=== PATIENT | female | born 1970 | race Two or more races ===

== ENCOUNTER 2021-01-14 08:15 | Inpatient (IN) | payer OTHER ==
[~2021-01-14] VITALS: Ht 165.1 cm; Wt 85.7 kg
[~2021-01-14 08:15] MED LIST: ASA81 MG; CALTRATE 600+D1 EAC1 PO; GLYCOTROL CAPS1 EACH PO; KLONOPIN2 MG/TAB; NABUMETONE500 MG PO; OSTERA TABLET1 EACH PO; PERCOCET 5-3251 EACH PO; TOPROL XL100 M1 PO; [UNRECOGNIZED DRUG - OTHER]
[2021-01-14] MEDS ORDERED: TOPAMAX50 MG PO (09:46)
[2021-01-14] MEDS ORDERED: TOPAM PO (09:47)
[2021-01-14] MEDS ORDERED: TIROSINT25 MCG PO (09:47)
[2021-01-14] MEDS ORDERED: FAMOTIDINE40 MG PO (09:48)
[2021-01-14] MEDS ORDERED: BENICAR5 MG PO (09:48)
[2021-01-14] MEDS ORDERED: ZOLOFT50 MG PO (09:48)
[2021-01-14] MEDS ORDERED: PANTOPRAZOLE SO40 MG PO (09:49)
[2021-01-14] MEDS ORDERED: CALCIUM PO (09:49)
[2021-01-21] MEDS ORDERED: ALENDRONATE SOD70 MG (07:52)
[2021-01-21] MEDS ORDERED: OMEPRAZOLE20 MG (07:52)
[2021-01-21] MEDS ORDERED: CALCIUM500 M1 (07:53)
[2021-01-21] MEDS ORDERED: VITAMIN B125000 MCG PO (08:28)
[2021-01-21] MEDS ORDERED: VITAMIN D3125 MC1 (08:29)
== END 2021-01-23 19:25 | DRG 470 ==
LOC: SURH 01-21 06:00 → O/R 01-21 06:00 → SURH 01-21 07:00
PROVIDERS: ADMIT Orthopaedic Surgery; ATTEND Orthopaedic Surgery
PROC: 0SRD0J9 Replacement of Left Knee Joint with Synthetic Substitute, Cemented, Open Approach (ICD-10-PCS; principal; 2021-01-21 07:00)
DX: M17.12 Unilateral primary osteoarthritis, left knee (principal); D62 Acute posthemorrhagic anemia; G40.802 Other epilepsy, not intractable, without status epilepticus; I10 Essential (primary) hypertension; K59.00 Constipation, unspecified

== ENCOUNTER 2024-10-23 07:00 | Inpatient (IN) | payer OTHER ==
[~2024-10-23] VITALS: Ht 165.1 cm; Wt 92.5 kg
[~2024-10-23 07:00] MED LIST changes: +ALENDRONATE SOD70 MG; +BENICAR5 MG PO; +CALCIUM PO; +CALCIUM500 M1; +FAMOTIDINE40 MG PO; +OMEPRAZOLE20 MG; +PANTOPRAZOLE SO40 MG PO; +TIROSINT25 MCG PO; +TOPAM PO; +TOPAMAX50 MG PO; +VITAMIN B125000 MCG PO; +VITAMIN D3125 MC1; +ZOLOFT50 MG PO
[2024-10-23 08:04] LABS: URINE APPEARANCE Clear; URINE BILIRRUBIN Negative (NEGATIVE); URINE BLOOD Negative; URINE COLOR Yellow; URINE GLUCOSE Negative (NEGATIVE); URINE KETONE Negative (NEGATIVE); URINE LEUKOCYTE Small; URINE NITRATE Negative; URINE PROTEIN Negative (NEGATIVE); URINE UROBILINOGEN 0.2 E.U./dl
[2024-10-23 08:05] LABS: URINE EPITHELIAL CELLS 3.6 uL (0.0-38.8); URINE RBC 13.3 uL (0.0-20.8); URINE WBC 54.7 uL (0.0-23.2)
[2024-10-23 08:24] LABS: INR 0.96; PARTIAL THROMBOPLASTIN TIME 25.1 SECONDS (22.0-34.0); PROTHROMBIN TIME 10.5 SECONDS (9.0-11.5)
[2024-10-23 08:33] VITALS: BP 137/77
[2024-10-31] MEDS ORDERED: OxyCODONE HCL/APAP UD (PERCOCET) PO PRN (10:45)
[2024-10-31] MEDS ORDERED: ONDANSETRON HCL 2 MG/ML VIAL IV PRN (10:45)
[2024-10-31] MEDS ORDERED: LIDOCAINE HCL 1%/EPINEPHRINE 20ML VIAL IJ ONE (11:17)
[2024-10-31] MEDS ORDERED: BUPIVACAINE HCL/MPF 0.5% 30ML VIAL ONE (11:17)
[2024-10-31] MEDS ORDERED: TRANEXAMIC ACID 100MG/1ML (1000MG) AMPUL IV ONE (11:18)
[2024-10-31] MEDS ORDERED: KETOROLAC TROMETHAMINE 60 MG VIAL IM ONE (11:45)
[2024-10-31] MEDS ORDERED: CEFAZOLIN SODIUM 1,000 MG VIAL IV SCH (12:00)
[2024-10-31] MEDS ORDERED: MORPHINE SULFATE 4 MG/ML CARTRIDGE IV SCH (12:00)
[2024-10-31] MEDS ORDERED: CEFAZOLIN SODIUM 1,000 MG VIAL ONE (13:22)
[2024-10-31 15:00] VITALS: BP 160/83; O2SAT 97
[2024-10-31] MEDS ORDERED: GABAPENTIN 100 MG CAPSULE PO SCH (21:00)
[2024-10-31] MEDS ORDERED: ORPHENADRINE CITRATE 100 MG TABLET PO SCH (21:00)
[2024-11-01 01:21] VITALS: BP 108/61; O2SAT 98
[2024-11-01] MEDS ORDERED: LEVOTHYROXINE SODIUM 25 MCG TABLET PO SCH (06:00)
[2024-11-01 07:06] LABS: HEMATOCRIT 33.6 % (36.0-45.00); HEMOGLOBIN 11.2 g/dL (12.0-15.00); MEAN CELL VOLUME 92.7 fL (80.00-100.00); MEAN CORPUSCULAR HEMOGLOBIN 30.8 pg (27.00-32.0); MEAN CORPUSCULAR HGB CONC 33.3 g/dl (32.0-36.0); PLATELET COUNT 135 K/uL (150-450); RED BLOOD COUNT 3.62 M/uL (4.00-6.00); RED CELL DISTRIBUTION WIDTH 14.5 % (11.5-14.5)
[2024-11-01 08:00] VITALS: BP 142/69; O2SAT 98
[2024-11-01] MEDS ORDERED: PATIENTS OWN MEDICATION (MEDICAMENTO EN PISO) PO SCH ×2 (09:00)
[2024-11-01] MEDS ORDERED: SERTRALINE HCL 50 MG TABLET PO SCH (09:00)
[2024-11-01] MEDS ORDERED: APIXABAN 2.5 MG TABLET PO SCH (09:00)
[2024-11-01] MEDS ORDERED: CEFAZOLIN SODIUM 1,000 MG VIAL IV ONE (10:45)
[2024-11-01 16:12] LABS: BILIRUBIN TOTAL 0.51 mg/dL (0.3-1.2); CALCIUM 8.5 mg/dL (8.5-10.1); CREATININE SERUM 0.85 mg/dL (0.55-1.02); GFR 69.18; GLOBULINA 2.8 G/DL (2.4-3.5); POTASSIUM 3.94 mEq/L (3.5-5.1); TOTAL PROTEIN 5.8 gm/dL (6.4-8.2)
[2024-11-01 17:00] VITALS: BP 141/66; O2SAT 100
[2024-11-01] MEDS ORDERED: VITAMIN B COMPLEX 1 EACH PO SCH (17:00)
[2024-11-01] MEDS ORDERED: SOD FERRIC GLUC COMPLX/SUCROSE 62.5 MG/5 ML AMPUL IV SCH (17:00)
[2024-11-02 01:23] VITALS: BP 113/63; O2SAT 97
[2024-11-02 08:11] LABS: HEMATOCRIT 33.7 % (36.0-45.00); HEMOGLOBIN 11.3 g/dL (12.0-15.00); MEAN CELL VOLUME 92.8 fL (80.00-100.00); MEAN CORPUSCULAR HEMOGLOBIN 31.2 pg (27.00-32.0); MEAN CORPUSCULAR HGB CONC 33.7 g/dl (32.0-36.0); RED BLOOD COUNT 3.63 M/uL (4.00-6.00); RED CELL DISTRIBUTION WIDTH 14.2 % (11.5-14.5)
[2024-11-02 08:30] LABS: PLATELET COUNT 135 K/uL (150-450)
[2024-11-02 11:00] VITALS: BP 153/73; O2SAT 100
[2024-11-02] MEDS ORDERED: GABAPENTIN100 MG PO (12:00)
[2024-11-02] MEDS ORDERED: ELIQUIS2.5 MG PO (12:00)
[2024-11-02] MEDS ORDERED: NORFLEX100MG PO (12:00)
[2024-11-02] MEDS ORDERED: OXYC1TAB9 PO (12:01)
[2024-11-02] MEDS ORDERED: Cyanocobalamin/Mecobalamin 1 TAB.SL SL SCH (17:00)
== END 2024-11-02 18:48 | DRG 470 ==
LOC: SURH 10-31 07:00 → O/R 10-31 08:14 → SURH 10-31 12:30
PROVIDERS: ADMIT Orthopaedic Surgery; ATTEND Orthopaedic Surgery
PROC: 0SRC0JZ Replacement of Right Knee Joint with Synthetic Substitute, Open Approach (ICD-10-PCS; principal; 2024-11-01)
DX: M17.11 Unilateral primary osteoarthritis, right knee (principal); D62 Acute posthemorrhagic anemia; M85.661 Other cyst of bone, right lower leg; G47.33 Obstructive sleep apnea (adult) (pediatric); I10 Essential (primary) hypertension